=== PATIENT | female | born 1950 | race Caucasian/White ===

== ENCOUNTER 2016-07-05 21:28 | Observation (INO) | payer MEDICAID, OTHER ==
[2016-07-05 21:43] VITALS: BP 170/79; PULSE 65; RESP 16; TEMP 98.4; O2SAT 99
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
[2016-07-05] MEDS ORDERED: METO25TA3 PO (21:51)
[2016-07-05] MEDS ORDERED: OMEP20TA PO (21:51)
[2016-07-05] MEDS ORDERED: SIMV5TAB3 PO (21:51)
[2016-07-05] MEDS ORDERED: unknown BP med (21:51)
[2016-07-05 21:59] LABS: AUTOMATED NEUTROPHIL # 5.1 TH/MM3 (1.8-7.7); BASOPHIL # 0.1 TH/MM3 (0-0.2); BASOPHIL % 0.9 % (0.0-2.0); EOSINOPHIL # 0.4 TH/MM3 (0-0.4); EOSINOPHIL % 3.8 % (0.0-4.0); HEMATOCRIT 43.3 % (35.0-46.0); HEMO FLAGS DIFF FINAL; LYMPH % 40.7 % (9.0-44.0); LYMPHOCYTE # 4.3 TH/MM3 (1.0-4.8); MEAN CORPUSCULAR HEMOGLOBIN 28.9 PG (27.0-34.0); MEAN CORPUSCULAR HGB CONC 32.9 % (32.0-36.0); MONO % 6.1 % (0.0-8.0); NEUT % 48.5 % (16.0-70.0); PLATELET COUNT 313 TH/MM3 (150-450); RED BLOOD COUNT 4.92 MIL/MM3 (4.00-5.30); WHITE BLOOD COUNT 10.5 TH/MM3 (4.0-11.0)
[2016-07-05 22:08] LABS: APTT (PATIENT) 23.6 SEC (24.3-30.1); PROTHROMBIN TIME - PATIENT 10.5 SEC (9.8-11.6)
[2016-07-05] MEDS ORDERED: SODIUM CHLOR 0.9% 1000 ML INJ 1,000 ML IV ONE (22:15)
[2016-07-05] MEDS ORDERED: PROPOFOL 200 MG/20 ML AMP IV ONE (22:15)
[2016-07-05 22:16] LABS: BICARBONATE 24.3 MEQ/L (21.0-32.0); POTASSIUM 3.6 MEQ/L (3.5-5.1)
--- NOTE | 2016-07-05 22:24 | RADRPT ---
EXAM DATE/TIME: 07/05/2016 22:07 [facility] COMPARISON: No previous studies available for comparison. INDICATIONS : Fall. Right elbow deformity. MEDICAL HISTORY : None. SURGICAL HISTORY : None. ENCOUNTER: Initial ACUITY: 1 day PAIN SCORE: 8/10 LOCATION: Right elbow FINDINGS: The elbow is dislocated. There is bayonet position of ulnar and radial elements relative to the dista l humerus. No displaced humeral fracture is identified. CONCLUSION: Elbow dislocation. No definite humeral fracture on limited single view evaluation Abdulaziz Duque MD on July 05, 2016 at 22:22 Board Certified Radiologist. This report was verified electronically.
--- NOTE | 2016-07-05 22:24 | RADRPT ---
EXAM DATE/TIME: 07/05/2016 22:04 [facility] COMPARISON: No previous studies available for comparison. INDICATIONS : Fall. Right elbow deformity. MEDICAL HISTORY : None. SURGICAL HISTORY : None. ENCOUNTER: Initial ACUITY: 1 day PAIN SCORE: 8/10 LOCATION: Right elbow FINDINGS: The right elbow is dislocated with lateral relative displacement of the radius and ulna relative to t he humerus. No gross fractures appreciated on single view evaluation. CONCLUSION: Right elbow dislocation Abdulaziz Duque MD on July 05, 2016 at 22:21 Board Certified Radiologist. This report was verified electronically.
--- NOTE | 2016-07-05 22:25 | RADRPT ---
EXAM DATE/TIME: 07/05/2016 22:10 [facility] COMPARISON: No previous studies available for comparison. INDICATIONS : Fall. Right elbow deformity. MEDICAL HISTORY : None. SURGICAL HISTORY : None. ENCOUNTER: Initial ACUITY: 1 day PAIN SCORE: 8/10 LOCATION: Right elbow FINDINGS: The radius and ulnar dislocated from the distal humerus with bayonet apposition of both forearm eleme nts relative to the distal humerus. CONCLUSION: Elbow dislocation Abdulaziz Duque MD on July 05, 2016 at 22:22 Board Certified Radiologist. This report was verified electronically.
[2016-07-05 22:35] VITALS: O2SAT 100
--- NOTE | 2016-07-05 22:36 | PD ---
Physical Exam Narrative General: The patient is a well-developed well-nourished female, uncomfortable appearing on arrival related to right elbow pain. Head and Neck exam: Head is normocephalic atraumatic. Eyes: EOMI, pupils are equal round and reactive to light. Nose: Midline septum with pink mucous membranes Mouth: Dentition unremarkable. Moist mucus membranes. Posterior oropharynx is not erythematous. No tonsillar hypertrophy. Uvula midline. Airway patent. Neck: No palpable lymphadenopathy. No nuchal rigidity. No thyromegaly. Cardiovascular: Regular rate and rhythm without murmurs, gallops, or rubs. Lungs: Clear to auscultation bilaterally. No wheezes, rhonchi, or rales. Abdomen: Soft, without tenderness to palpation in all 4 quadrants of the abdomen. No guarding, rebound, or rigidity. Normal bowel sounds are audible. No tenderness on palpation of McBurney's point. Extremities: No clubbing, cyanosis, or edema, except an area of interest, the right elbow. The patient has some swelling noted. The patient has an abrasion along the medial aspect of the right elbow. The patient has an abrasion along the posterior aspect of the left elbow. The patient additionally reports having left knee pain with flexion. 2+ pulses in all 4 extremities. On examination of the patient's right elbow she has tenderness on palpation and deformity noted along the posterior aspect of the elbow. The patient has full range of motion of the left knee without any crepitus, deformity, or ligament laxity noted. Back: No spinous process tenderness to palpation. No costovertebral angle tenderness to palpation. Neurologic Exam: Grossly nonfocal. Skin Exam: No rash noted. Data Data Last Documented VS Vital Signs Date Time Temp Pulse Resp B/P Pulse Ox O2 Delivery O2 Flow Rate FiO2 07/05/16 21:43 98.4 65 16 170/79 99 Room Air Orders Complete Blood Count With Diff (07/05/16 21:40) Basic Metabolic Panel (Bmp) (07/05/16 21:40) Act Partial Throm Time (Ptt) (07/05/16 21:40) Prothrombin Time / Inr (Pt) (07/05/16 21:40) Iv Access Insert/Monitor (07/05/16 21:40) Elbow, Limited (Ap&Lat) (07/05/16 ) Humerus, One View (07/05/16 ) Forearm, One View (07/05/16 ) Sodium Chlor 0.9% 1000 Ml Inj (Ns 1000 M (07/05/16 22:15) Propofol 200 Mg/20 Ml Inj (Diprivan 200 (07/05/16 22:15) Elbow, Limited (Ap&Lat) (07/05/16 ) Admit Order (Ed Use Only) (07/05/16 23:32) Labs Laboratory Tests Test 07/05/16 21:45 White Blood Count 10.5 TH/MM3 Red Blood Count 4.92 MIL/MM3 Hemoglobin 14.2 GM/DL Hematocrit 43.3 % Mean Corpuscular Volume 88.0 FL Mean Corpuscular Hemoglobin 28.9 PG Mean Corpuscular Hemoglobin 32.9 % Concent Red Cell Distribution Width 14.0 % Platelet Count 313 TH/MM3 Mean Platelet Volume 8.0 FL Neutrophils (%) (Auto) 48.5 % Lymphocytes (%) (Auto) 40.7 % Monocytes (%) (Auto) 6.1 % Eosinophils (%) (Auto) 3.8 % Basophils (%) (Auto) 0.9 % Neutrophils # (Auto) 5.1 TH/MM3 Lymphocytes # (Auto) 4.3 TH/MM3 Monocytes # (Auto) 0.6 TH/MM3 Eosinophils # (Auto) 0.4 TH/MM3 Basophils # (Auto) 0.1 TH/MM3 CBC Comment DIFF FINAL Differential Comment Prothrombin Time 10.5 SEC Prothromb Time International 1.0 RATIO Ratio Activated Partial 23.6 SEC Thromboplast Time Sodium Level 142 MEQ/L Potassium Level 3.6 MEQ/L Chloride Level 108 MEQ/L Carbon Dioxide Level 24.3 MEQ/L Anion Gap 10 MEQ/L Blood Urea Nitrogen 22 MG/DL Creatinine 0.80 MG/DL Estimat Glomerular Filtration 72 ML/MIN Rate Random Glucose 127 MG/DL Calcium Level 9.1 MG/DL [facility] Medical Record Reviewed: Yes Supervised Visit with ARIELLE: Yes Interpretation(s) Last Impressions Radius/Ulna X-Ray 07/05/16 0000 Signed Impressions: Service Date/Time: Tuesday, July 05, 2016 22:04 - CONCLUSION: Right elbow dislocation Abdulaziz Duque MD Humerus X-Ray 07/05/16 0000 Signed Impressions: Service Date/Time: Tuesday, July 05, 2016 22:07 - CONCLUSION: Elbow dislocation. No definite humeral fracture on limited single view evaluation Abdulaziz Duque MD Elbow X-Ray 07/05/16 0000 Signed Impressions: Service Date/Time: Tuesday, July 05, 2016 22:58 - CONCLUSION: Unchanged dislocation. Ivan Robertson Jr., MD Elbow X-Ray 07/05/16 0000 Signed Impressions: Service Date/Time: Tuesday, July 05, 2016 22:10 - CONCLUSION: Elbow dislocation Abdulaziz Duque MD Narrative Course I, Dr. Landis, have reviewed the advance practice practitioner's documentation and am in agreement, met with the patient face to face, made the diagnosis, and the medical decision making was done by me. The patient was initially seen by Dania. Please see her complete history and physical. *My assessment and Findings: The patient is a 66-year-old female who presents to [facility] emergency Department with a history of tripping and falling at a local parking lot. The patient reports that she is unsure how she landed, however she now has severe right elbow pain. The patient has an abrasion to the medial aspect of the right elbow. The patient denies hitting her head or losing consciousness. She denies having any neck pain, paresthesias , or weakness to her extremities. The patient had imaging studies ordered. The patient was noted to have a dislocated elbow. The patient will be provided procedural sedation and have a close reduction done by me. The patient reports that her past medical history is significant for high blood pressure, hyperlipidemia. The patient reports having an allergy to penicillin. During the course of the patients emergency department visit, the patients history, examination, and differential diagnosis were reviewed with the patient. The patient had IV access obtained and blood work sent for analysis. The patient was initially provided normal saline IV fluids. After x-ray revealed a right elbow dislocation, the patient consented to a closed reduction. The patient is unsure when her tetanus was last updated, therefore she was provided a tetanus update. The Patient was given a dose of clindamycin for prevention of infection and her abrasions. The patients laboratory studies were reviewed and remarkable for a CBC that is within normal limits, BMP is remarkable for chloride of 108, BUN 22, glucose 127 , PT 10.5, INR 1.0, PTT 23.6 Radiology studies were reviewed and remarkable for an x-ray of the radius and ulna and humerus that showed no acute abnormality, other than at the right elbow the patient is noted to have a dislocation. The patient consented to a close reduction. Respiratory therapy, the orthopedic brace maker, and Dania, the nurse practitioner were available at the bedside to assist with the relocation. The patient was given adequate sedation to be drowsy during the procedure. Multiple attempts were made at reduction of the elbow dislocation. The elbow palpated to be back in position, however it would quickly slide back out of place with minimal movement or any attempt at placement in the splint. Dania called Dr. Sal the orthopedic physician teacher of family and consumer science to notify him regarding our multiple attempts at relocation that were not successful. He recommended that the patient be placed in a splint and he will see the patient and consultation in the morning. I spoke to Dr. Caldera regarding this patient's admission. He did agree to admit the patient for further evaluation and treatment at this time. The patients results were discussed with the patient, including the plan of care. I explained that further testing and/ or monitoring is indicated based on the patients history, examination, and/ or laboratory findings. Therefore, I recommended admission for additional evaluation. The patient expressed understanding and was agreeable with this plan. The patient was admitted to the hospital in stable condition and [facility] with a consultation to Dr. Sal regarding the persistent right elbow dislocation. Procedures Procedure Narrative After the risks and benefits were discussed the following procedure was performed: MODERATE SEDATION: The patient was placed on a front desk monitor and pulse oximetry. An ambu bag and suction was immediately available at bedside. The patient was monitored by the nurse. Oxygen saturation , heart rate and blood pressure were monitored. Procedural sedation was acheived using propofol. The patient was observed until awake and alert. Procedural Sedation time in attendance was [*] minutes. Physician Communication Physician Communication Please see my ED course for physician communication details. Diagnosis Primary Impression: Dislocation, elbow Qualified Code: S53.104A - Dislocation, elbow, right, initial encounter Admitting Information Admitting Physician Requests: Observation Justine Landis MD July 05, 2016 22:35
--- NOTE | 2016-07-05 23:29 | RADRPT ---
EXAM DATE/TIME: 07/05/2016 22:58 [facility] COMPARISON: ELBOW RIGHT LIMITED (AP & LAT), July 05, 2016, 22:10. FINDINGS: 2 limited views of the right elbow were performed with splint material in place. There is dislocation seen at the elbow joint. The radius and ulna are posterior medially located relative to the humerus. CONCLUSION: Unchanged dislocation. Ivna Robertson Jr., MD on July 05, 2016 at 23:25 Board Certified Radiologist. This report was verified electronically.
--- NOTE | 2016-07-05 23:44 | HHI.HP ---
HPI Service [facility] Primary Care Physician Evy Corral MD Admission Diagnosis Fall with right elbow dislocation Diagnoses: Chief Complaint: mechanical fall pain R knee and R elbow Travel History International Travel<30 Days: No Contact w/Intl Traveler <30 Da: No Traveled to Known Affected Are: No History of Present Illness Patient with a past medical history which includes HTN, acid reflux, hyperlipidemia. 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 Patient takes them out of the store to see what kind of car they drove away in an reports she tripped over the curb and fell. Patient denies head trauma or loss of consciousness. Patient does report right knee pain as well as right elbow pain. Patient describes the right elbow pain feeling like she, "hit her funny bone." Patient reports pain is better after pain medication received in the emergency department. Patient reports right elbow pain is worse with movement and right knee pain is worse with weightbearing. Patient is far able to ambulate. At this point patient rates the pain 3-4 out of 10. Patient denies history of CAD, chest pain, SOB, nausea, vomiting, diarrhea, constipation fevers or chills Review of Systems Except as stated in HPI: all other systems reviewed are Neg Past Family Social History Past Medical History HTN, acid reflux, hyperlipidemia Past Surgical History tubal ligation, EGD Reported Medications [unknown BP med] Omeprazole 20 Mg Tab 20 Mg PO DAILY Metoprolol Tartrate 25 Mg Tab 25 Mg PO DAILY Simvastatin 5 Mg Tab 5 Mg PO DAILY Allergies: Coded Allergies: Penicillin (Verified Allergy, Unknown, 07/05/16) Active Ordered Medications Current Medications Medications (Trade) Dose Ordered Sig/Vijaya Route Start Time Stop Time Status Last Admin (NS 1000 ml Inj) 1,000 ml @ 100 mls/hr Q10H IV 07/06/16 00:15 07/06/16 00:14 (Lopressor) 25 mg DAILY PO 07/06/16 09:00 (Protonix) 20 mg DAILY@06 PO 07/06/16 06:00 Pravastatin Sodium 10 mg 10 mg DAILY PO 07/06/16 09:00 (1/2 NS 1000 ml Inj) 1,000 ml @ 75 mls/hr [id number] IV 07/06/16 05:05 07/06/16 05:51 (NS Flush) 2 ml UNSCH PRN IV FLUSH 07/06/16 05:15 (NS Flush) 2 ml BID IV FLUSH 07/06/16 09:00 (Tylenol) 650 mg Q4H PRN PO 07/06/16 05:15 (Zofran Inj) 4 mg Q6H PRN IVP 07/06/16 05:15 (Narcan Inj) 0.4 mg UNSCH PRN IV 07/06/16 05:15 Family History Mother had breast CA Father had an ulcer Social History tobacco use smokes 8 cigarettes per day smoked past 40 years Denies EtOH use or illicit drug use Physical Exam Vital Signs Vital Signs Date Time Temp Pulse Resp B/P Pulse Ox O2 Delivery O2 Flow Rate FiO2 07/05/16 21:43 98.4 65 16 170/79 99 Room Air Physical Exam GENERAL: This is a well-nourished, well-developed patient, appears uncomfortable SKIN: Abrasion right knee HEAD: Atraumatic. Normocephalic. No temporal or scalp tenderness. EYES:Extraocular motions intact. No scleral icterus. No injection or drainage. CARDIOVASCULAR: Regular rate and rhythm without murmurs, gallops, or rubs. RESPIRATORY: Clear to auscultation. Breath sounds equal bilaterally. No wheezes , rales, or rhonchi. GASTROINTESTINAL: Abdomen soft, non-tender, nondistended. No guarding. MUSCULOSKELETAL: Right upper extremity in splint intact circulation with brisk cap refill and intact sensation. Bilateral lower extremity trace edema NEUROLOGICAL: Awake and alert. No focal deficits appreciated. Motor and sensory grossly within normal limits. Five out of 5 muscle strength in all muscle groups with the exception of right upper extremity currently in a splint and right. Normal speech. Laboratory Laboratory Tests Test 07/05/16 21:45 White Blood Count 10.5 Red Blood Count 4.92 Hemoglobin 14.2 Hematocrit 43.3 Mean Corpuscular Volume 88.0 Mean Corpuscular Hemoglobin 28.9 Mean Corpuscular Hemoglobin 32.9 Concent Red Cell Distribution Width 14.0 Platelet Count 313 Mean Platelet Volume 8.0 Neutrophils (%) (Auto) 48.5 Lymphocytes (%) (Auto) 40.7 Monocytes (%) (Auto) 6.1 Eosinophils (%) (Auto) 3.8 Basophils (%) (Auto) 0.9 Neutrophils # (Auto) 5.1 Lymphocytes # (Auto) 4.3 Monocytes # (Auto) 0.6 Eosinophils # (Auto) 0.4 Basophils # (Auto) 0.1 CBC Comment DIFF FINAL Differential Comment Prothrombin Time 10.5 Prothromb Time International 1.0 Ratio Activated Partial 23.6 Thromboplast Time Sodium Level 142 Potassium Level 3.6 Chloride Level 108 Carbon Dioxide Level 24.3 Anion Gap 10 Blood Urea Nitrogen 22 Creatinine 0.80 Estimat Glomerular Filtration 72 Rate Random Glucose 127 Calcium Level 9.1 Result Diagram: 07/05/16214407/05/162144 Imaging Last Impressions Knee X-Ray 07/06/16 0006 Signed Impressions: Service Date/Time: Wednesday, July 06, 2016 00:20 - CONCLUSION: Moderate osteoarthritis. No acute abnormality. Ivan Robertson Jr., MD Radius/Ulna X-Ray 07/05/16 0000 Signed Impressions: Service Date/Time: Tuesday, July 05, 2016 22:04 - CONCLUSION: Right elbow dislocation Abdulaziz Duque MD Humerus X-Ray 07/05/16 0000 Signed Impressions: Service Date/Time: Tuesday, July 05, 2016 22:07 - CONCLUSION: Elbow dislocation. No definite humeral fracture on limited single view evaluation Abdulaziz Duque MD Elbow X-Ray 07/05/16 0000 Signed Impressions: Service Date/Time: Tuesday, July 05, 2016 22:58 - CONCLUSION: Unchanged dislocation. Ivan Robertson Jr., MD Assessment and Plan Problem List: (1) Dislocation, elbow ICD Code: S53.106A Status: Acute Assessment and Plan Patient with a past medical history which includes HTN, acid reflux, hyperlipidemia. Mechanical fall with dislocated right elbow. Mechanical fall with dislocated right elbow Unable to set in ER after multiple attempts RUE currently in sling Consult placed to orthopedic surgery Patient nothing by mouth at this time D5 half-normal saline at 84 cc/h Morphine IV as needed for pain Current chronic stable medical conditions include hypertension, acid reflux and hyperlipidemia home medications reviewed and resumed as indicated DVT prophylaxis with SCDs Discussed with ER provider, nursing and patient Written by Imani Canales, acting as scribe for Dr. Barksdale on 07/06/16 at 06 :02. This note was transcribed by scribe [Imani Canales]. I, Dr. Nicky Barksdale personally performed the history, physical exam, and medical decision making; and confirmed the accuracy of the information in the transcribed note. Authenticated by Dr. Nicky Barksdale on 07/06/16 at 0610. Problem Qualifiers (1) Dislocation, elbow: Qualified Code: S53.104A - Dislocation, elbow, right, initial encounter Nicky Barksdale MD July 05, 2016 23:44 Imani Canales July 06, 2016 05:53 Nicky Barksdale MD July 05, 2016 23:44 Imani Canales July 06, 2016 05:53
[2016-07-06] MEDS ORDERED: MORPHINE SULFATE 4 MG/ML INJ IV PUSH ONE (00:15)
[2016-07-06] MEDS ORDERED: SODIUM CHLOR 0.9% 1000 ML INJ 1,000 ML IV SCH (00:15)
[2016-07-06] MEDS ORDERED: ONDANSETRON HCL 4 MG/2 ML VIAL IV PUSH ONE ×2 (00:15→12:00)
[2016-07-06] MEDS ORDERED: DIPHTH/TETANUS/ACEL PERTUSSIS (BOOSTER) 0.5 ML VIAL/PFS IM ONE (00:30)
[2016-07-06] MEDS ORDERED: CLINDAMYCIN INJ 600 MG in SODIUM CHLORIDE 0.9% INJ 100 ML IV ONE (00:30)
--- NOTE | 2016-07-06 00:32 | RADRPT ---
EXAM DATE/TIME: 07/06/2016 00:20 [facility] COMPARISON: No previous studies available for comparison. INDICATIONS : Fall. MEDICAL HISTORY : None. SURGICAL HISTORY : None. ENCOUNTER: Initial ACUITY: 1 day PAIN SCORE: 0/10 LOCATION: Left knee FINDINGS: Multiple views of the knee show joint space narrowing with periarticular sclerotic change and osteoph yte production. No fracture or dislocation. No joint effusion. Soft tissues are unremarkable. CONCLUSION: Moderate osteoarthritis. No acute abnormality. Ivan Robertson Jr., MD on July 06, 2016 at 0:29 Board Certified Radiologist. This report was verified electronically.
[2016-07-06 02:06] VITALS: BP 162/76; PULSE 82; RESP 16; O2SAT 92
[2016-07-06] MEDS ORDERED: SODIUM CHLOR 0.45% 1000 ML INJ 1,000 ML IV SCH (05:05)
[2016-07-06] MEDS ORDERED: ONDANSETRON HCL 4 MG/2 ML VIAL IVP PRN (05:15)
[2016-07-06] MEDS ORDERED: ACETAMINOPHEN 325 MG TAB PO PRN (05:15)
[2016-07-06] MEDS ORDERED: SODIUM CHLORIDE 0.9% FLUSH 10 ML FLUSH IV FLUSH PRN (05:15)
[2016-07-06] MEDS ORDERED: NALOXONE HCL 0.4 MG/ML AMP IV PRN (05:15)
[2016-07-06] MEDS ORDERED: PANTOPRAZOLE SOD 20 MG DELAYED RELEASE TAB PO SCH (06:00)
[2016-07-06] MEDS ORDERED: DEXT 5%-NACL 0.45% 1000 ML INJ 1,000 ML IV SCH (06:00)
[2016-07-06] MEDS ORDERED: MORPHINE SULFATE 4 MG/ML INJ IV PUSH PRN ×2 (06:15→08:30)
[2016-07-06] MEDS ORDERED: Post-op Orders (for Pharmacy) MISC XX ONE (08:30)
[2016-07-06] MEDS ORDERED: ACETAMINOPHEN/HYDROcodone 325 MG/5 MG TAB PO PRN (08:30)
[2016-07-06] MEDS ORDERED: NORC5TAB PO (08:32)
--- NOTE | 2016-07-06 08:35 | PD.OP ---
cc: Raffi Chin MD Operative Report Date of Surgery: July 06, 2016 Preoperative Diagnosis: right elbow dislocation Postoperative Diagnosis: Procedure: Closed reduction of right elbow dislocation under anesthesia with manipulation Anesthesia: Mac Surgeon: Raffi Chin Spent Grain Dryer(s): TIFFANIE Garcia PA-C Operation and Findings: Kelsey had a fall yesterday resulting in right elbow dislocation. She underwent attempted closed reduction the emergency department which was unsuccessful. Informed consent was obtained. Operative site was marked. He is brought to operating room. She was given IV sedation. Timeout procedure was performed. Procedure began with gentle manipulation of the elbow. The elbow was partially extended. Gentle traction was applied. The elbow was manipulated. The elbow was reduced. Fluoroscopy was used to confirm concentric reduction of the elbow. Patient's elbow was stable from a range of motion of 30 up through 130 . At this point a well molded well-padded clamshell fiberglass splint was applied. Patient was awakened and transferred to recovery in stable condition. Raffi Chin MD July 06, 2016 08:35
--- NOTE | 2016-07-06 08:53 | PD.ORT.PN ---
Subjective Subjective Remarks Fallen parking lot at [employer] after getting off work. Right elbow pain and deformity. Emergency room diagnosed with dislocation of elbow. Unable to reduce in the ER Objective Vitals Vital Signs Date Time Temp Pulse Resp B/P Pulse Ox O2 Delivery O2 Flow Rate FiO2 07/06/16 02:06 82 16 162/76 92 07/05/16 22:35 100 3.00 07/05/16 22:35 100 07/05/16 22:35 100 Nasal Cannula 3.00 07/05/16 21:43 98.4 65 16 170/79 99 Room Air Result Diagram: 07/05/16214407/05/162144 Other Results Laboratory Tests Test 07/05/16 21:45 Prothrombin Time 10.5 SEC (9.8-11.6) Prothromb Time International 1.0 RATIO Ratio Imaging Last 24 hours Impressions Knee X-Ray 07/06/16 0006 Signed Impressions: Service Date/Time: Wednesday, July 06, 2016 00:20 - CONCLUSION: Moderate osteoarthritis. No acute abnormality. Ivan Robertson Jr., MD Objective Remarks Right upper extremity: No pain with shoulder range of motion. Splint intact. Distally intact sensation with good capillary refills Assessment & Plan Assessment and Plan Right elbow dislocation Surgery this morning with Dr. Bryan for close reduction under anesthesia Splinted Nonweightbearing right upper extremity Follow up in office in 1-2 weeks for x-ray evaluation Felix Barragan Jr. July 06, 2016 08:53
[2016-07-06] MEDS ORDERED: METOPROLOL TARTRATE 25 MG TAB PO SCH (09:00)
[2016-07-06] MEDS ORDERED: PRAVASTATIN SOD 10 MG TAB PO SCH (09:00)
[2016-07-06] MEDS ORDERED: SODIUM CHLORIDE 0.9% FLUSH 10 ML FLUSH IV FLUSH SCH (09:00)
[2016-07-06] MEDS ORDERED: DO NOT ADM ANY ANTICOAGULANT DRUGS PRN (09:15)
[2016-07-06 09:41] VITALS: BP 135/76; PULSE 77; RESP 18; TEMP 97.9; O2SAT 95
--- NOTE | 2016-07-06 10:26 | MB ---
cc: JOE LEWIS DATE OF CONSULTATION 07/06/2016 DATE OF ADMISSION 07/05/2016 REASON FOR CONSULTATION Right elbow dislocation CONSULTING PHYSICIAN Dr. Pat HISTORY Kelsey is a 66-hour female who was leaving work at [employer]. She tripped and fell in the parking lot. She had immediate right elbow pain. She also had some mild knee pain. She has not been able to stand and ambulate. She had no dizziness, syncope or loss of consciousness. She had significant deformity of her elbow. She presented to the emergency room where x-rays revealed a dislocation of her right elbow. She underwent attempted closed reduction. Post reduction x-rays revealed the elbow was not reduced. The patient is currently awake and alert in the emergency department. Her main complaint is her right elbow. She also has some mild left knee pain. PAST MEDICAL HISTORY ILLNESSES 1. Hypertension 2. Reflux 3. Hypercholesterolemia SURGERIES 1. Tubal ligation 2. EGD MEDICATIONS 1. Omeprazole 2. Metoprolol 3. Simvastatin ALLERGIES PENICILLIN FAMILY HISTORY Positive for breast cancer and stomach ulceration. SOCIAL HISTORY The patient denies alcohol or drug use. She has a history of smoking. REVIEW OF SYSTEMS The patient denies headache, visual changes, neck pain, chest pain, shortness of breath, abdominal pain, nausea or recent weight loss. She complains of right elbow pain and mild left knee pain. PHYSICAL EXAMINATION The patient is a pleasant 66-year female who is awake and alert. She is alert and oriented x3. She appears well-developed, well-nourished. VITAL SIGNS: Temperature 98.4, pulse 65, respirations 16, blood pressure 170/79, O2 sat 99% on three liters nasal cannula. HEAD: The patient is normocephalic. EYES: Pupils are equal. NECK: Soft and nontender. Trachea is midline. ABDOMEN: Soft, nontender, nondistended. EXTREMITIES: Examination of the right arm reveals no tenderness around her shoulder, wrist or fingers. She has intact sensation in all fingers. She has mild swelling of the hand. She has pain with any elbow motion. There is deformity of the elbow. Skin is intact except for a superficial abrasion over the lateral elbow. Examination of left arm reveals no pain with shoulder, elbow or wrist motion. Skin is intact. Radial pulses palpable. Sensation is intact in all fingers. Examination of the right leg reveals no significant pain with hip, knee or ankle motion. Skin is intact. Dorsalis pedis pulses palpable. Examination of left leg reveals minimal pain with hip, knee or ankle motion. She has some mild tenderness to palpation over her anterior knee. There is a small superficial abrasion present. The knee is stable to varus and valgus stresses. There is no joint effusion noted. There is no crepitus with motion. Sensation intact in both feet. X-RAYS X-rays of right elbow were reviewed. X-rays reveal a dislocated right elbow joint. IMPRESSION 1. Right elbow dislocation 2. Left knee contusion 3. Hypertension PLAN Treatment options were discussed the patient. At this point, I would recommend attempted closed reduction with manipulation of right elbow under anesthesia. I explained to her that if the reduction is somewhat stable, I will place into a splint and hopefully avoid invasive surgical procedure. If the elbow is irreducible or if it is very unstable, the patient may need a primary ligamentous reconstruction and possible external fixation. The risks of surgery include recurrent elbow dislocation, fracture, injury to arteries, nerves and blood vessels, need for further surgical intervention, as well as complications of anesthesia. All questions were answered. I will plan on surgery today. A mid-level provider in my office (nurse practitioner or physician assistant softball coach) may see this patient on follow-up visits and continue to implement the objectives of this plan including: Starting or adjusting medications, injections , cast application, orthotics, brace application, physical therapy, radiological studies (including x-ray, MRI, CT, ultrasound, bone scan), vascular studies, neurologic studies, specialist consultation, and proceeding with surgical management, as appropriate. MD EMMANUEL Rothman/CHAYO /8:39 AM /10:17 AM [place]
--- NOTE | 2016-07-06 11:06 | HHI.PR ---
Subjective Remarks patient comfortable, no pain, nausea or vomting voiding Objective Vitals Vital Signs Date Time Temp Pulse Resp B/P Pulse Ox O2 Delivery O2 Flow Rate FiO2 07/06/16 09:41 97.9 77 18 135/76 95 07/06/16 09:30 98.3 75 19 154/73 95 Room Air 07/06/16 09:15 75 16 155/71 94 Room Air 07/06/16 09:00 75 14 152/77 99 Nasal Cannula 2 07/06/16 08:42 98.2 74 12 140/66 98 Nasal Cannula 3 07/06/16 02:06 82 16 162/76 92 07/05/16 22:35 100 3.00 07/05/16 22:35 100 07/05/16 22:35 100 Nasal Cannula 3.00 07/05/16 21:43 98.4 65 16 170/79 99 Room Air I/O 07/05/16 07/05/16 07/05/16 07/06/16 07/06/16 07/06/16 07:00 15:00 23:00 07:00 15:00 23:00 Intake Total 300 ml Output Total 0 ml Balance 300 ml Intake Oral 0 ml IV Total 100 ml Other 200 ml Output Urine Total 0 ml Estimated Blood Loss 0 ml # Voids 0 Result Diagram: 07/05/16214407/05/162144 Imaging Last Impressions Knee X-Ray 07/06/16 0006 Signed Impressions: Service Date/Time: Wednesday, July 06, 2016 00:20 - CONCLUSION: Moderate osteoarthritis. No acute abnormality. Ivan Robertson Jr., MD Radius/Ulna X-Ray 07/05/16 0000 Signed Impressions: Service Date/Time: Tuesday, July 05, 2016 22:04 - CONCLUSION: Right elbow dislocation Abdulaziz Duque MD Humerus X-Ray 07/05/16 0000 Signed Impressions: Service Date/Time: Tuesday, July 05, 2016 22:07 - CONCLUSION: Elbow dislocation. No definite humeral fracture on limited single view evaluation Abdulaziz Duque MD Elbow X-Ray 07/05/16 0000 Signed Impressions: Service Date/Time: Tuesday, July 05, 2016 22:58 - CONCLUSION: Unchanged dislocation. Ivan Robertson Jr., MD Objective Remarks awake and alert, NAD lungs clear regular rhythm abdomen soft, nontender RUE- with post op dressing in place, moves fingers spontaenously LE no edema gait steady Procedures 07/05- closed reduction and splinting fo right UE A/P Problem List: (1) Dislocation, elbow ICD Code: S53.106A Status: Acute Assessment and Plan Patient with a past medical history which includes HTN, acid reflux, hyperlipidemia. Mechanical fall with dislocated right elbow. Mechanical fall with dislocated right elbow S/P close reduction and fiber glass splinting by Dr. Bryan 07/05 cleared for DC by Dr. Bryan OP ff up in 2 weeks Current chronic stable medical conditions include hypertension, acid reflux and hyperlipidemia home medications reviewed restart Home meds- OP ff up with PCP- Dr. Ranjana Terry diet- heart healthy diet ACtivity- weightbearing as tolerated, specific ortho instructions with right UE do not change dressing Meds- continue home meds- [place] 1 tab po q 4-6 prn for pain Problem Qualifiers (1) Dislocation, elbow: Qualified Code: S53.104A - Dislocation, elbow, right, initial encounter Velasquez Pat MD July 06, 2016 11:06
[2016-07-06 11:16] VITALS: BP 117/58; PULSE 78; RESP 16; TEMP 97.8; O2SAT 95
[2016-07-06 15:18] VITALS: BP 122/65; PULSE 71; RESP 16; TEMP 97.9; O2SAT 95
--- NOTE | 2016-07-06 15:22 | RADRPT ---
EXAM DATE/TIME: 07/06/2016 08:25 [facility] COMPARISON: ELBOW RIGHT LIMITED (AP & LAT), July 05, 2016, 22:58. INDICATIONS : Reduction of right elbow. MEDICAL HISTORY : None. SURGICAL HISTORY : None. ENCOUNTER: Subsequent ACUITY: 2 days PAIN SCORE: Non-responsive. LOCATION: Right elbow. FINDINGS: 2 intraoperative spot images of the elbow. Alignment within normal limits. CONCLUSION: Alignment within normal limits. Case Gonzalez MD on July 06, 2016 at 15:19 Board Certified Radiologist. This report was verified electronically.
--- NOTE | 2016-07-06 15:27 | EKG ---
Date Performed: 07/06/2016 Time Performed: 08:07:54 PTAGE: 66 years EKG: Sinus rhythm MINIMAL ST DEPRESSION BORDERLINE ECG NO PREVIOUS TRACING DOCTOR: Latonia Pat Interpretating Date/Time 07/06/2016 15:23:44
== END 2016-07-06 17:08 | disposition home or self-care (01) ==
LOC: NEPC 21:28 → NEDA 23:34 → NEDH 07-06 04:59 → NEPFCDU 07-06 05:53
PROVIDERS: ADMIT Hospitalist; ATTEND Hospitalist
DX: S53.104A Unspecified dislocation of right ulnohumeral joint, initial encounter (principal); S80.02XA Contusion of left knee, initial encounter; I10 Essential (primary) hypertension; E78.5 Hyperlipidemia, unspecified; K21.9 Gastro-esophageal reflux disease without esophagitis; E78.00 Pure hypercholesterolemia, unspecified; Z87.891 Personal history of nicotine dependence; Z88.0 Allergy status to penicillin; F17.210 Nicotine dependence, cigarettes, uncomplicated; W10.1XXA Fall (on)(from) sidewalk curb, initial encounter
CPT/HCPCS: 24600; 73070; 73564; 76000; 80048; 85025; 85610; 85730; 90471; 90715; 93005; 99152; 99153; G0378; J2270; J2405; J7030